=== PATIENT | female | born 1975 | race African-American/Black ===

== ENCOUNTER 2016-09-21 22:59 | Emergency (ER) | payer MEDICARE, OTHER ==
[2016-09-21] MEDS ORDERED: ALBUTEROL17 GM (23:30)
[2016-09-21] MEDS ORDERED: K-DUR10 MEQ PO (23:31)
[2016-09-21] MEDS ORDERED: BUMEX2 MG PO (23:31)
[2016-09-21] MEDS ORDERED: PULMICORT0.5 MG/21 (23:31)
[2016-09-21] MEDS ORDERED: NOVOLOG FL100 UNIT/1 (23:32)
[2016-09-21] MEDS ORDERED: VITAMIN B650 M2 PO (23:32)
[2016-09-21] MEDS ORDERED: OPTIVAR OPHTHA1 DROP (23:32)
[2016-09-21] MEDS ORDERED: DEXILANT60 MG PO (23:32)
[2016-09-21] MEDS ORDERED: SENNA8.6 M1 (23:33)
[2016-09-21] MEDS ORDERED: OXYCODONE HCL5 M1 PO (23:33)
[2016-09-21] MEDS ORDERED: OMEPRAZOLE20 M2 PO (23:34)
[2016-09-21] MEDS ORDERED: LANTUS100 UNITS/ SUBQ (23:34)
[2016-09-21] MEDS ORDERED: OXYCODONE ER PO (23:35)
[2016-09-21] MEDS ORDERED: ZANAFLEX (23:35)
[2016-09-21] MEDS ORDERED: LEVSIN0.125 M3 PO (23:36)
[2016-09-21] MEDS ORDERED: MUCUS RELIEF600 M1 PO (23:36)
[2016-09-21] MEDS ORDERED: BENTYL10 M1 PO (23:37)
[2016-09-22 01:26] LABS: BASOPHIL% 0.5 % (0-2.5); EOSINOPHIL# 0.1 X10e3 (0-0.7); EOSINOPHIL% 0.7 % (0.0-7.0); HEMATOCRIT 39.6 % (35.0-45.0); HEMOGLOBIN 13.5 gm/dL (12.0-16.0); LYMPHOCYTE# 1.4 X10e3 (1.0-3.5); LYMPHOCYTE% 17.1 % (17.0-45.0); MEAN CELL VOLUME 86.5 FL (83-96); MEAN CORPUSCULAR HEMOGLOBIN 29.4 PG (28-34); MEAN PLATELET VOLUME 7.9 FL (6.5-11.5); MONOCYTE# 0.4 X10e3 (0-1.0); MONOCYTE% 5.3 % (3.0-12.0); NEUTROPHIL# 6.2 X10e3 (1.5-7.1); NEUTROPHIL% 76.4 % (40-75); PLATELET COUNT 205 X10e3 (140-420); RED BLOOD COUNT 4.57 X10e (3.90-5.30); RED CELL DISTRIBUTION WIDTH 12.2 % (11.0-15.5); WHITE BLOOD COUNT 8.1 X10e3 (4.0-10.5)
[2016-09-22 01:28] LABS: DIFF IND NO
[2016-09-22 01:48] LABS: CALCIUM SERUM 7.6 mg/dL (8.4-10.2); CREATININE SERUM 0.9 mg/dL (0.6-1.4); GLOM FILT RATE Estimated 94.1 mL/min (>60); POTASSIUM 3.3 mmol/L (3.5-5.1)
[2016-09-22 02:42] LABS: URINE SOURCE CLEAN CATCH
[2016-09-22 02:44] LABS: URINE APPEARANCE CLEAR; URINE BILIRUBIN NEG (NEG); URINE BLOOD 1+ (NEG); URINE COLOR YELLOW; URINE GLUCOSE NEG (NORM); URINE KETONE 1+ (NEG); URINE LEUKOCYTE ESTERASE NEG (NEG); URINE NITRATE NEG (NEG); URINE PROTEIN NEG (NEG); URINE SPECIFIC GRAVITY >=1.030 (1.003-1.035); URINE UROBILINOGEN 0.2 MG/DL (NORM)
[2016-09-22 02:52] LABS: CULTURE INDICATED? NO; MICRO INDICATED? YES; URINE BACTERIA NEG (NEG)
[2016-09-22 02:53] LABS: URINE MUCUS PRESENT; URINE SQUAMOUS EPITHELIAL CELL OCCAS /[HPF]
[2016-09-23 23:40] LABS: CHLAMYDIA TRACH Not Detected (Not Detected); N GONOR Not Detected (Not Detected)
== END 2016-09-22 03:47 | disposition home or self-care (01) ==
LOC: SED 22:59
PROVIDERS: Emergency Medicine
DX: N93.9 Abnormal uterine and vaginal bleeding, unspecified (principal); R10.2 Pelvic and perineal pain; E11.9 Type 2 diabetes mellitus without complications; K21.9 Gastro-esophageal reflux disease without esophagitis; Z79.4 Long term (current) use of insulin; Z79.899 Other long term (current) drug therapy; Z88.2 Allergy status to sulfonamides; Z88.5 Allergy status to narcotic agent; Z88.1 Allergy status to other antibiotic agents; Z91.040 Latex allergy status
CPT/HCPCS: 80048; 81003; 84702; 85025; 86900; 86901; 87491; 87591; 87808; 87905; 99284